=== PATIENT | female | born 2000 | race American Indian/Alaskan Native ===

== ENCOUNTER 2021-04-02 15:02 | Emergency (ER) | payer SELFPAY ==
[2021-04-02 17:41] VITALS: BP 117/69
[2021-04-02] MEDS ORDERED: TETRACAINE 0.5% OPHTH SOLN 4ML OU STA (18:01)
[2021-04-02] MEDS ORDERED: FLUORESCEIN 1 MG STRIP OP ONE (18:01)
--- NOTE | 2021-04-02 18:02 | Emergency Department Report ---
ED General Adult HPI - General Chief complaint: Nausea/Vomiting/Diarrhea Stated complaint: VOMITING PREG TEST Time Seen by Provider: 04/02/21 17:55 Source: patient Mode of arrival: Ambulatory Limitations: No Limitations - History of Present Illness Initial comments: 20-year-old female presents to the ER today with complaints of blurry vision and symptoms. Patient states that she bought some hjxk-yur-qugborz contact lenses and she fell asleep in them about 2 weeks ago and since then she has been having blurry vision in both eyes. She denies any pain, itching, redness, drainage, matting or crusting or swelling to the eyes since she wear contacts. Patient also states that she is concerned for possible as she has been late on her period. Her last menstrual cycle was February 17. She states that she has taken a couple tests and they have been negative but she has symptoms of nausea, fatigue, decreased appetite and mood swings. She denies any abdominal pain, UTI symptoms or vaginal symptoms. MD Complaint: Blurry vision; Late MC -: week(s) - Related Data Allergies Allergy/AdvReac Type Severity Reaction Status Date / Time No Known Allergies Allergy Unverified 04/02/21 17:36 ED Review of Systems ROS: Stated complaint: VOMITING PREG TEST Other details as noted in HPI Comment: All other systems reviewed and negative Constitutional: malaise. denies: chills, fever Eyes: vision change. denies: eye pain, eye discharge ENT: as per HPI. denies: ear pain, throat pain, dental pain, hearing loss, epistaxis, congestion Respiratory: denies: cough, shortness of breath, SOB with exertion, SOB at rest, wheezing Cardiovascular: denies: chest pain, palpitations, edema, syncope, paroxysmal nocturnal dyspnea Gastrointestinal: nausea. denies: abdominal pain, vomiting, diarrhea, constipation, hematemesis, melena, hematochezia Genitourinary: denies: urgency, dysuria, frequency, hematuria, discharge, abnormal menses, dyspareunia Musculoskeletal: denies: back pain, joint swelling, arthralgia Skin: denies: rash, lesions, change in color, change in hair/nails, pruritus Neurological: denies: headache, weakness, paresthesias Psychiatric: denies: anxiety, depression, auditory hallucinations, visual hallucinations, homicidal thoughts, suicidal thoughts Hematological/Lymphatic: denies: easy bleeding, easy bruising, swollen glands ED Past Medical Hx - Past Medical History Previous Medical History?: No - Surgical History Past Surgical History?: Yes Additional Surgical History: spleen ED Physical Exam - General Limitations: No Limitations General appearance: alert, in no apparent distress - Head Head exam: Present: atraumatic, normocephalic, normal inspection - Eye Eye exam: Present: normal appearance, PERRL, EOMI. Absent: scleral icterus, conjunctival injection, periorbital swelling, periorbital tenderness Pupils: Present: normal accommodation, other (Banuelos lamp exam of both eyes show no ulcerations, abrasions, dendritic lesions or any other abnormalities to the cornea) - Expanded Eye Exam Expanded Eyelids: Normal Inspection: Right Pupils: Regular, Round: Bilateral Sclera/Conjunctival: Normal Inspection: Bilateral Anterior chamber: Normal Inspection: Bilateral Posterior chamber: Deferred: Bilateral Visual acuity (R) = 20/: 50 Visual acuity (L) = 20/: 50 With correction: No - ENT ENT exam: Present: normal exam, mucous membranes moist - Cardiovascular Cardiovascular Exam: Present: regular rate, normal rhythm, normal heart sounds - Neurological Exam Neurological exam: Present: alert, oriented X3, CN II-XII intact, normal gait - Psychiatric Psychiatric exam: Present: normal affect, normal mood - Skin Skin exam: Present: intact ED Course Vital Signs 04/02/21 17:38 Temperature 97.6 F Pulse Rate 88 Respiratory 18 Rate Blood Pressure 117/69 [Right] O2 Sat by Pulse 97 Oximetry ED Medical Decision Making - Medical Decision Making 20-year-old female presents to the ER today with complaints of blurry vision and symptoms. Patient states that she bought some kefr-nhn-yobwilb contact lenses and she fell asleep in them about 2 weeks ago and since then she has been having blurry vision in both eyes. She denies any pain, itching, redness, drainage, matting or crusting or swelling to the eyes since she wear contacts. Patient also states that she is concerned for possible as she has been late on her period. Her last menstrual cycle was February 17. She states that she has taken a couple tests and they have been negative but she has symptoms of nausea, fatigue, decreased appetite and mood swings. She denies any abdominal pain, UTI symptoms or vaginal symptoms. 2049: Patient is well-appearing, not toxic and not in any acute distress. She is neurologically intact with a normal gait. She appears well-hydrated. Patient eye exam is completely normal. She has no conjunctival erythema, no subconjunctival hemorrhage, no eye drainage or tearing, no periorbital swelling or erythema, no photosensitivity, and Banuelos lamp exam unremarkable. Her visual acuity shows 20/50 in each eye and in both, I suspect patient has underlying vision issues and she needs to follow-up with an improvement intern or floral artist for prescription glasses. Her urine was negative. UA negative for UTI. Discussed lab results with patient. Informed her to follow-up with REFRIGERATION TECHNICIAN. Also recommend that she follows up with a local floral artist or improvement intern for routine routine exam for glasses of prescription contacts. Patient expressed understanding of instructions and agree with plan. Patient was stable at time of discharge Critical care attestation.: If time is entered above; I have spent that time in minutes in the direct care of this critically ill patient, excluding procedure time. ED Disposition Clinical Impression: Blurry vision, bilateral Disposition: DC- TO HOME OR SELFCARE Is pt being admited?: No Does the pt Need Aspirin: No Condition: Stable Instructions: Blurred Vision, Adult Additional Instructions: It Is important that you follow-up with the improvement intern for a routine eye exam as you may need glasses or prescription contact lenses. Follow-up with REFRIGERATION TECHNICIAN listed on your discharge instructions. Return to the ER if your symptoms changes or worsens in any way. Referrals: STAN GAITAN MD [Staff Physician] - 3-5 Days (Primary care doctor) KWABENA LEMONS MD [Staff Physician] - 3-5 Days (Wing Commander) [facility] [Provider Group] - 3-5 Days (REFRIGERATION TECHNICIAN) Forms: Work/School Release Form(ED) Time of Disposition: 20:42
[2021-04-02 20:33] LABS: Bilirubin,Urine NEG (Negative); Blood,Urine NEG (Negative); Color,Urine Amber (Yellow); Mucus,Urine 3+ /HPF
[2021-04-02 20:52] LABS: HCG Qualitative,Urine Negative (Negative)
== END 2021-04-02 20:56 | disposition home or self-care (01) ==
LOC: ED 15:02
DX: H53.8 Other visual disturbances (principal); Z98.890 Other specified postprocedural states; Z79.899 Other long term (current) drug therapy
CPT/HCPCS: 81001; 81025; 99283; 99284